=== PATIENT | female | born 1985 | race Two or more races ===

== ENCOUNTER 2023-07-22 19:30 | Emergency (ER) | payer OTHER, SELFPAY ==
[2023-07-22 19:41] VITALS: BP 152/93
[2023-07-22 20:11] LABS: COVID-19 Antigen Negative (Negative)
[2023-07-22 21:33] VITALS: BP 154/98
--- NOTE | 2023-07-22 21:58 | ED.GENMED ---
History of Present Illness
General
Chief Complaint: Cold/Flu/URI Symptoms
Source: patient
Exam Limitations: none
Time Seen by Provider: 07/22/23 21:26
Nursing documentation reviewed up to this point in time: agreed with
Travel History
Have you had any contact with someone who has COVID-19?: No
Do you have any symptoms of coronavirus? Fever > 100 degrees, chills, cough, shortness of breath, sore throat, loss of taste or smell, muscle aches, or headache?: No
History of Present Illness
History of Present Illness:
38-year-old female was sent to the the medical ER initially for a COVID test and x-ray to be cleared for crisis. She was seen initially by crisis sent by family doctor for worsening depression and suicidal thoughts. Upon my exam tie up worker
tells me I do not need to order chest x-ray any longer. Patient has not had any symptoms of COVID this was simply a test for clearance for psych admission.
Pt has no medical complaints.
Past History
Past History
ED Past Medical History: Other (Preeclampsia, gestational diabetes)
ED Past Surgical History:
Social History
Tobacco: Non-smoker
Review of Systems
Review of Systems
Allergies reviewed?: Yes
All Other Systems: ROS reviewed and negative except as documented in HPI and ROS
Constitutional: Reports no symptoms; Denies fever, fatigue or chills
Respiratory: Reports no symptoms
Cardiac: Reports no symptoms
ABD/GI: Reports no symptoms
: Reports no symptoms
Musculoskeletal: Reports no symptoms
Skin: Reports no symptoms
Hematologic/Lymphatic: Reports no symptoms
Psychiatric: Reports depression
Phy Exam
General Physical Exam
General Presentation: no apparent distress
General age: appears stated age
General Skin: warm and dry
General Habitus: normal
General Mental: alert
General Hydration: appears well hydrated
Neurological Exam
Neurological Exam: alert and oriented x3
Musculoskeletal Exam
Musculoskeletal Exam: full ROM
Skin Exam
Skin Exam: normal color and warm/dry
Psychiatric Exam
Psychiatric Exam: normal mood/affect
Course
Orders/Labs/Results
Orders:
Orders
07/22/23 19:47
COVID-19 Antigen Urgent
Source: Nasal Swab
Vital Signs
Initial and Last Documented VS:
Initial Vital Signs
Temp Pulse Resp BP Pulse Ox
98.6 F 75 18 152/93 99
07/22/23 19:41 07/22/23 19:41 07/22/23 19:41 07/22/23 19:41 07/22/23 19:41
Last Documented Vital Signs
Temp Pulse Resp BP Pulse Ox
98.6 F 71 18 154/98 99
07/22/23 19:41 07/22/23 21:33 07/22/23 19:41 07/22/23 21:33 07/22/23 21:33
MDM/Problems Addressed
MDM/Problems Addressed:
Patient have a COVID test as initial requested by crisis for psychiatric placement no longer needs x-ray. Patient is no physical plaints cleared for crisis
*Critical Care Note
Total Time (30-74mins, 75-104mins- exclusive of procedures): Not Applicable
ED Attending Note
-
Portions of this chart may have been created with voice recognition software.� Occasional wrong word or��sound alike� substitutions may have occurred due to the inherent limitations of voice recognition software.
Discharge Plan
Departure
Patient Disposition: Home (Routine Discharge)
Date of Disposition: 07/22/23
Time of Disposition: 21:57
Patient with high blood pressure during this ER visit?: Yes
Condition: Fair
Covid-19: Not Applicable
Discharge Problem:
Medical clearance for psychiatric admission
Prescriptions:
No Action
PNV cmb#95-ferrous fumarate-FA [] 1 EACH tablet
1 ea PO DAILY
acetaminophen 325 MG tablet
650 mg PO Q4HPRN PRN (Reason: mild pain) 0RF
ibuprofen 600 MG tablet
600 mg PO Q4HPRN PRN (Reason: cramps) 0RF
amoxicillin-pot clavulanate 400-57 mg/5 mL suspension for reconstitution
12 ml PO BID 10 Days Qty: 240 0RF
prednisone 20 mg tablet
40 mg PO BID 7 Days Qty: 28 0RF
Referrals:
Tova English DO [Family Provider] -
Activity Restrictions/Additional Instructions:
Patient is cleared for crisis
Interventions
Interventions:
*General Assessment Last Done: 07/22/23 21:32
ED- Pulmonary Assessment Last Done: 07/22/23 21:32
Discharge Date and Time
Print Language: THAI
[2023-07-22 22:04] VITALS: BP 154/98
== END 2023-07-22 22:05 | disposition home or self-care (01) ==
LOC: EMR 19:30
PROVIDERS: EMERGENCY PHYSICIAN Emergency Medicine; FAMILY PHYSICIAN Family Medicine
DX: Z13.39 Encounter for screening examination for other mental health and behavioral disorders (principal); R45.851 Suicidal ideations; F32.A Depression, unspecified; Z11.52 Encounter for screening for COVID-19; R03.0 Elevated blood-pressure reading, without diagnosis of hypertension
CPT/HCPCS: 99283; 87811

== ENCOUNTER 2024-07-03 19:23 | Emergency (ER) | payer OTHER, SELFPAY ==
[2024-07-03 19:25] VITALS: BP 174/91; BMI 30.5
[2024-07-03 19:28] VITALS: BP 174/91
[2024-07-03] MEDS: NSS 1000 IV (19:32)
--- NOTE | 2024-07-03 20:00 | EDRN ---
Patient ambulated to the restroom without difficulty and back in bed resting comfortably
[2024-07-03 20:16] LABS: % Basophils 0.5 % (0-2); % Eosinophils 3.2 % (0-6); % Immature Granulocytes 0.2 % (0-0.5); % Lymphocytes 31.3 % (20.5-51.1); % Monocytes 6.3 % (1.7-9.3); % Neutrophils 58.5 % (42.2-75.2); Absolute Basophils 0.1 10^3/uL (0-0.2); Absolute Eosinophils 0.3 10^3/uL (0-0.7); Absolute Monocytes 0.6 10^3/uL (0.1-0.6); Absolute Neutrophils 5.7 10^3/uL (1.4-6.5); Hematocrit 34.8 % (37.0-47.0); Hemoglobin 11.5 g/dL (12.0-16.0); Mean Corpuscular Hgb 24.8 pg (27.0-31.0); Mean Corpuscular Volume 75.2 fL (81.0-99.0); Mean Platelet Volume 11.3 fL (7.4-10.4); Nucleated Red Blood Cells % 0 %; Platelet Count 266 10^3/uL (130-400); Red Blood Cell Count 4.63 10^6/uL (4.20-5.40); Red Cell Dist. Width 13.7 % (11.5-14.5); White Blood Cell Count 9.7 10^3/uL (4.8-10.8)
[2024-07-03 20:25] LABS: HCG, Urine Qualitative Screen Negative
--- NOTE | 2024-07-03 20:25 | ED.GENMED ---
History of Present Illness
General
Chief Complaint: Overdose Unintentional
Source: patient
Exam Limitations: none
Time Seen by Provider: 07/03/24 19:44
Nursing documentation reviewed up to this point in time: agreed with
History of Present Illness
History of Present Illness:
39 yo female w h/o depression, Hypothyroid, vertigo, presents tearful, stating she was at home with her 4 year old daughter, they had lunch, she reached into the refrigerator for a drink, she grabbed 'Iced Tea' and drank half of a 12 oz can and
states 'it didn't taste good.' About 20 minutes later, she felt dizzy, 'heavy,' had a short period of burning in her esophagus but that passed. She made herself some 'mushroom coffee' to settle her stomach and called 911 as she was not feeling well
and didn't know what she drank.
I spoke with myara Velasquez of police and EMS at the house. EMT reports she is the one who called, for 'near syncope,' they found her laying on sofa, minimally responsive, couldn't give them much information. can of '[employer]
THC 50 mg and CBD 50 mg and the can is half empty. This coincides with patient's story
They also inform me that Child Protective Services has been called.
Pt denies feeling suicidal. She maintains that she thought it was 'just iced tea'
She denies CP, SOB, abd pain. Denies n/v/d.
Past History
Past History
ED Past Medical History: Hypothyroidism, Psychiatric (depression) and Other (Preeclampsia, gestational diabetes)
ED Past Surgical History:
Social History
Tobacco: Non-smoker
Alcohol: None
Drug: None
Personal:
Living: with family
Employment: Employed (hourly caregiver)
Review of Systems
Review of Systems
Allergies reviewed?: Yes
All Other Systems: ROS reviewed and negative except as documented in HPI and ROS
Constitutional: Denies fever or fatigue
EENT: Denies sore throat
Respiratory: Denies trouble breathing
Cardiac: Denies chest pain, diaphoresis, palpitations or syncope
ABD/GI: Denies abdominal pain, nausea, vomiting or diarrhea
: Denies dysuria or difficulty voiding
Musculoskeletal: Reports no symptoms
Skin: Reports no symptoms
Neurological: Reports dizzy; Denies headache, weakness or numbness
Psychiatric: Reports anxiety
Phy Exam
Physical Exam
Physical Exam:
GENERAL: No acute distress. A&Ox3.
CONSTITUTIONAL: Afebrile.
EYES: clear, conjunctivae normal
ENMT: moist mucus membranes, Pharynx nl
RESPIRATORY: Regular respirations, nonlabored, lungs clear.
CARDIOVASCULAR: Regular rate and rhythm, no murmurs, no rubs.
GI: Soft, nontender, normal BS
MUSCULOSKELETAL: Moves with ease. Well perfused.
SKIN: Warm, dry, pink
PSYCH: Anxious, tearful mood and affect. Well kept, interactive and appropriate
NEUROLOGIC: Awake, alert and oriented. No focal neurological deficits
Course
Orders/Labs/Results
Orders:
Orders
07/03/24 19:32
0.9% Sodium Chloride 1000 ml [Nss] 1,000 ml IV BOLUS
07/03/24 20:00
Test Result ONCE
07/03/24 20:03
Acetaminophen Urgent
Alcohol Urgent
Complete Blood Count/With Diff Urgent
Comprehensive Metabolic Panel Urgent
HCG, Urine Qualitative Screen Urgent
Date Specimen was Collected: 07/03/24
Time Specimen was Collected: 20:02
Salicylate Urgent
Urine Drug Abuse Screen Urgent
Date Specimen was Collected: 07/03/24
Time Specimen was Collected: 20:02
Abnormal Lab Results
07/03/24
20:03
Hgb 11.5 L g/dL
(12.0-16.0)
Hct 34.8 L %
(37.0-47.0)
MCV 75.2 L fL
(81.0-99.0)
MCH 24.8 L pg
(27.0-31.0)
MPV 11.3 H fL
(7.4-10.4)
BUN 18 H mg/dl
(7-17)
Glucose 155 H mg/dl
(70-99)
Salicylates < 1.0 L mg/dl
(2.0-20.0)
Acetaminophen < 10 L ug/ml
(10-30)
07/03/24 20:03
07/03/24 20:03
Vital Signs
Initial and Last Documented VS:
Initial Vital Signs
Temp Pulse Resp BP
98.4 F 107 22 174/91
07/03/24 19:25 07/03/24 19:25 07/03/24 19:25 07/03/24 19:25
Last Documented Vital Signs
Temp Pulse Resp BP Pulse Ox
98.4 F 66 19 120/81 96
07/03/24 19:25 07/03/24 21:03 07/03/24 21:03 07/03/24 21:03 07/03/24 21:03
MDM/Problems Addressed
Differential Diagnosis Includes:
Accidental ingestion, depression
MDM/Problems Addressed:
39 yo female w h/o depression, Hypothyroid, vertigo, presents tearful, stating she was at home with her 4 year old daughter, they had lunch, she reached into the refrigerator for a drink, she grabbed 'Iced Tea' and drank half of a 12 oz can and
states 'it didn't taste good.' About 20 minutes later, she felt dizzy, 'heavy,' had a short period of burning in her esophagus but that passed. She made herself some 'mushroom coffee' to settle her stomach and called 911 as she was not feeling well
and didn't know what she drank.
I spoke with a Reynaldoeleanor Calderóner of police and EMS at the house. EMT reports she is the one who called, for 'near syncope,' they found her laying on sofa, minimally responsive, couldn't give them much information. can of '[employer]
THC 50 mg and CBD 50 mg and the can is half empty. This coincides with patient's story
They also inform me that Child Protective Services has been called.
Pt denies feeling suicidal. She maintains that she thought it was 'just iced tea'
She denies CP, SOB, abd pain. Denies n/v/d.
9:00 PM:
CBC with no clinically significant abnormality
CMP normal
UDS Negative
Alcohol negative
Pt is feeling better, OOB and ambulating well.
Stable for discharge
This seems to be an accidental ingestion. It does say 'Iced Tea' on the label.
*Critical Care Note
Total Time (30-74mins, 75-104mins- exclusive of procedures): Not Applicable
ED Attending Note
-
Portions of this chart may have been created with voice recognition software.� Occasional wrong word or��sound alike� substitutions may have occurred due to the inherent limitations of voice recognition software.
Discharge Plan
Departure
Patient Disposition: Home (Routine Discharge)
Date of Disposition: 07/03/24
Time of Disposition: 21:09
Patient with high blood pressure during this ER visit?: No
Condition: Good
Discharge Problem:
Ingestion of substance
Instructions: Accidental Overdose, Adult ED
Prescriptions:
No Action
PNV cmb#95-ferrous fumarate-FA [] 1 EACH tablet
1 ea PO DAILY
acetaminophen 325 MG tablet
650 mg PO Q4HPRN PRN (Reason: mild pain) 0RF
ibuprofen 600 MG tablet
600 mg PO Q4HPRN PRN (Reason: cramps) 0RF
amoxicillin-pot clavulanate 400-57 mg/5 mL suspension for reconstitution
12 ml PO BID 10 Days Qty: 240 0RF
prednisone 20 mg tablet
40 mg PO BID 7 Days Qty: 28 0RF
Referrals:
UNKNOWN - PT DOES,NOT KNOW [Family Provider] -
Activity Restrictions/Additional Instructions:
As we discussed, your workup here shows nothing worrisome.
Drink plenty of water/fluids over the next 24 hours
See your doctor Saturday if you are not 100% better by then
Interventions
Interventions:
*Risk Screen - Suicide Last Done: 07/03/24 19:25
*General Assessment Last Done: 07/03/24 19:25
*Neglect/Abuse Screening Last Done: 07/03/24 19:25
*ED- Fall Risk Assessment Last Done: 07/03/24 21:38
*ED COVID-19 Vaccine History Last Done: 07/03/24 19:25
*Nursing Disposition Last Done: 07/03/24 21:38
ED- Cardiac Assessment Last Done: 07/03/24 19:54
ED- Neurological Assessment Last Done: 07/03/24 19:54
ED-Psychological Assessment Last Done: 07/03/24 19:54
ED- Pulmonary Assessment Last Done: 07/03/24 19:54
Discharge Date and Time
Discharge Date/Time: 07/03/24 21:43
Print Language: [place] CITIZ[place]
[2024-07-03 20:37] LABS: ALT (SGPT) 15 U/L (0-35); AST (SGOT) 18 U/L (14-36); Acetaminophen < 10 ug/ml (10-30); Albumin 4.7 g/dl (3.5-5.0); Alkaline Phosphatase 64 U/L (38-126); Blood Urea Nitrogen 18 mg/dl (7-17); Carbon Dioxide 25 mmol/L (22-30); Chloride 103 mmol/L (98-107); Estimated Creatinine Clearance > 125 ml/min; Glucose 155 mg/dl (70-99); Potassium 3.7 mmol/L (3.5-5.1); Salicylate < 1.0 mg/dl (2.0-20.0); Sodium 139 mmol/L (135-145); Total Bilirubin 0.4 mg/dl (0.2-1.3); Total Protein 7.7 g/dl (6.3-8.2); eGFR > 60.00
[2024-07-03 20:45] LABS: Amphetamines Negative (Negative); Barbiturates Negative (Negative); Benzodiazepines Negative (Negative); Buprenorphine Negative (Negative); Cocaine Negative (Negative); Marijuana Negative (Negative); Methadone Negative (Negative); Methamphetamines Negative (Negative); Opiates Negative (Negative); Phencyclidine Negative (Negative); Tricyclic Antidepressants Negative (Negative)
--- NOTE | 2024-07-03 20:47 | EDRN ---
Patient provided with a drink of water, call krishnamurthy in reach.
[2024-07-03 21:03] VITALS: BP 120/81
--- NOTE | 2024-07-03 21:37 | EDRN ---
Patient discharged home with a friend
== END 2024-07-03 21:43 | disposition home or self-care (01) ==
LOC: EMR 19:23
PROVIDERS: Registered Nurse; EMERGENCY PHYSICIAN Emergency Medicine
DX: T40.721A Poisoning by synthetic cannabinoids, accidental (unintentional), initial encounter (principal); E03.9 Hypothyroidism, unspecified
CPT/HCPCS: 99284; 96360; 80053; 80143; 80179; 80306; 81025; 82077; 85025